=== PATIENT | male | born 1985 | race Caucasian/White ===

== ENCOUNTER 2018-05-04 23:33 | Emergency (ER) | payer OTHER ==
[~2018-05-04] VITALS: Ht 190.5 cm; Wt 99.8 kg
[2018-05-04 23:41] VITALS: Ht 190.5 cm; Wt 99.8 kg
[2018-05-05 01:27] LABS: BASOPHIL % 0.2 % (0-2); PLATELET COUNT 240 x10^3mcL (130-400)
[2018-05-05 01:33] LABS: RED CELL DISTRIBUTION WIDTH 20.8 % (11.5-14.5)
[2018-05-05 01:34] LABS: CALCIUM 8.7 mg/dL (8.5-10.1); CARBON DIOXIDE 27.8 mmol/L (21-32); CHLORIDE SERUM 104 mmol/L (98-107); CREATININE SERUM 0.8 mg/dL (0.7-1.3); GFR1 > 60 mL/min; GLUCOSE SERUM 109 mg/dL (74-106); POTASSIUM SERUM 4.3 mmol/L (3.5-5.1); SODIUM SERUM 138 mmol/L (136-145)
[2018-05-05 01:39] LABS: ALBUMIN 3.8 g/dL (3.4-5.0); ALKALINE PHOSPHATASE 62 U/L (46-116); ALT/SGPT 35 U/L (16-63); AST/SGOT 15 U/L (15-37); BILIRUBIN TOTAL 0.42 mg/dL (0.20-1.00); TOTAL PROTEIN, SERUM 6.7 g/dL (6.4-8.2)
[2018-05-05 07:12] VITALS: BP 125/75
== END 2018-05-05 07:48 | disposition home or self-care (01) ==
LOC: ED 23:33
PROVIDERS: Emergency Medicine
DX: Q87.40 Marfan syndrome, unspecified (principal); Z95.0 Presence of cardiac pacemaker
CPT/HCPCS: 83880; C9113; J1200; J2405; J2930; J3010; J3490; Q0092